=== PATIENT | female | born 1940 | race Caucasian/White ===

== ENCOUNTER 2019-01-23 19:30 | Outpatient (CLI) | payer MEDICARE | END 2019-01-23 19:31 | disposition home or self-care (01) | LOC: SLEEPLAB 19:30 | PROVIDERS: ATTEND Family Medicine | DX: G47.9 Sleep disorder, unspecified (principal); G47.33 Obstructive sleep apnea (adult) (pediatric); R53.83 Other fatigue; E66.9 Obesity, unspecified; R06.83 Snoring; K21.9 Gastro-esophageal reflux disease without esophagitis; F41.9 Anxiety disorder, unspecified; I10 Essential (primary) hypertension; R35.1 Nocturia; G47.00 Insomnia, unspecified | CPT/HCPCS: 95810 ==

== ENCOUNTER 2019-02-26 19:30 | Outpatient (CLI) | payer MEDICARE | END 2019-02-26 19:31 | disposition home or self-care (01) | LOC: SLEEPLAB 19:30 | PROVIDERS: ATTEND Family Medicine | DX: G47.33 Obstructive sleep apnea (adult) (pediatric) (principal); G47.61 Periodic limb movement disorder; R53.83 Other fatigue; K21.9 Gastro-esophageal reflux disease without esophagitis; R35.1 Nocturia; I10 Essential (primary) hypertension; R06.83 Snoring; F41.9 Anxiety disorder, unspecified; G47.00 Insomnia, unspecified; Z68.30 Body mass index [BMI] 30.0-30.9, adult | CPT/HCPCS: 95811 ==

== ENCOUNTER 2022-12-02 11:50 | Outpatient (CLI) | payer MEDICARE | END 2022-12-02 11:51 | disposition home or self-care (01) | LOC: SCSMRI 11:50 | PROVIDERS: ATTEND Family Medicine | DX: D18.03 Hemangioma of intra-abdominal structures (principal) | CPT/HCPCS: 74183 ==